=== PATIENT | female | born 1955 | race Caucasian/White ===

== ENCOUNTER 2021-05-02 10:06 | Day surgery (SDC) | payer OTHER ==
[~2021-05-02] VITALS: Ht 152.4 cm; Wt 91.6 kg
[2021-05-02] MEDS ORDERED: fentaNYL citrate 0.05 MG/ML VIAL ONE (11:45)
[2021-05-02] MEDS ORDERED: LIDOCAINE 2% 100 MG/5 ML UJET TP ONE ×2 (11:46→12:10)
[2021-05-02] MEDS ORDERED: fentaNYL citrate 0.05 MG/ML VIAL IVP ONE (12:10)
== END 2021-05-02 12:55 | disposition home or self-care (01) ==
LOC: MDS 10:06 → MMU 10:06 → MDS 12:55
PROVIDERS: ATTEND Internal Medicine Gastroenterology
DX: Z12.11 Encounter for screening for malignant neoplasm of colon (principal); K57.30 Diverticulosis of large intestine without perforation or abscess without bleeding; I10 Essential (primary) hypertension; Z79.899 Other long term (current) drug therapy
CPT/HCPCS: 45378; J3010